=== PATIENT | female | born 1950 | race Caucasian/White ===

== ENCOUNTER 2021-10-29 18:50 | Observation (INO) ==
[2021-10-29] MEDS ORDERED: DILTIAZEM 50 MG/10 ML VIAL IV STA (19:17)
[2021-10-29 19:24] LABS: Basophils # 0.1 10*3/uL (0.0-0.2); Basophils % 0.8 % (0.0-0.8); Eosinophils # 0.3 10*3/uL (0.0-0.87); Eosinophils % 3.4 % (0.00-10.9); Hematocrit 39.4 VOL% (35.7-47.0); Immature Granulocytes % 0.5 %; Immature Granulocytes Absolute 0.04 #; Lymphocytes # 1.7 10*3/uL (1.4-4.0); Lymphocytes % 21.7 % (21.3-54.2); Mean Corpuscular Volume 93.4 FL (87-102); Mean Platelet Volume 11.4 FL (9.6-12.0); Monocytes % 4.9 % (1.7-12.7); Neutrophils % 68.7 % (38.7-73.9); Platelet Count 230 T/CUMM (130-400); Red Blood Count 4.22 MC/CUMM (3.8-5.5); Red Cell Distribution Width 13.2 % (9.3-17.3); White Blood Count 7.8 T/CUMM (4-12)
[2021-10-29 19:38] LABS: PT Patient Result 11.5 SECS (10.5-12.0); Partial Thromboplastin Time 26.6 SECS (23.8-32.1)
[2021-10-29] MEDS: DILTIAZEM INJ 100 MG in SODIUM CHLORIDE 0.9% 100 ML IV SCH (19:38)
[2021-10-29 19:58] LABS: Alanine Aminotransferase 24 U/L (13-56); Albumin 3.7 G/DL (3.4-5.0); Alkaline Phosphatase 88 U/L (45-117); Aspartate Amino Transferase 24 U/L (0-37); Bilirubin,Total < 0.39 MG/DL (0.20-1.00); Blood Urea Nitrogen 14 MG/DL (7-18); Calcium 9.2 MG/DL (8.5-10.1); Carbon Dioxide 28 MMOL/L (21-32); Estimated Glom Filtration Rate 93 ML/MIN; Glucose 223 MG/DL (74-106); Osmolality,Calculated 271.5 MOS/KG (273-304); Potassium 4.2 MMOL/L (3.5-5.1); Sodium 132 MMOL/L (136-145); Total Protein 7.5 G/DL (6.4-8.2)
[2021-10-29] MEDS ORDERED: ONDANSETRON 4 MG/2 ML VIAL IV PRN (20:17)
[2021-10-29] MEDS ORDERED: ACETAMINOPHEN 325 MG TABLET PO PRN (20:17)
[2021-10-29] MEDS ORDERED: SODIUM CHLORIDE 0.9% 1,000 ML IV SCH (20:30)
[2021-10-29] MEDS ORDERED: SIMVASTATIN 20 MG TABLET PO SCH (21:00)
[2021-10-29] MEDS: ASPIRIN CHEW 81 MG TABLET PO SCH (21:12)
[2021-10-29 23:34] LABS: Mucus,Urine Occasional /LPF (Occasional); RBC,Urine 3 /HPF (0-4); Squamous Epithelial Cell,Urine Occasional /HPF (0-10)
[2021-10-29 23:35] LABS: Bilirubin,Urine Negative (Negative); Blood, Urine Trace mg/dL (Negative); Glucose,Urine (UA) Negative (Negative); Ketones,Urine 15 mg/dL (Negative); Nitrite,Urine Negative (Negative); Protein,Urine 30 MG/DL; Urine Appearance Clear (Clear); Urine Color Yellow (Yellow); Urine Urobilinogen 0.2 EU/DL (<2.0); Urine pH 7.5 (4.5-8.0)
[2021-10-30] MEDS ORDERED: NITROGLYCERIN SL 0.4 MG TABLET SL PRN (00:23)
[2021-10-30] MEDS: ACETAMINOPHEN 500 MG TABLET PO PRN ×2 (00:46→13:14)
[2021-10-30 03:33] LABS: Basophils % 0.4 % (0.0-0.8); Eosinophils # 0.2 10*3/uL (0.0-0.87); Eosinophils % 2.7 % (0.00-10.9); Hematocrit 34.5 VOL% (35.7-47.0); Hemoglobin 11.7 GM/DL (12.0-16.0); Immature Granulocytes % 0.1 %; Immature Granulocytes Absolute 0.01 #; Lymphocytes # 2.6 10*3/uL (1.4-4.0); Lymphocytes % 33.9 % (21.3-54.2); Mean Corpuscular HGB Conc 33.9 GM/DL (32-36); Mean Corpuscular Volume 91.8 FL (87-102); Mean Platelet Volume 11.1 FL (9.6-12.0); Monocytes % 8.5 % (1.7-12.7); Neutrophils % 54.4 % (38.7-73.9); Platelet Count 191 T/CUMM (130-400); Red Blood Count 3.76 MC/CUMM (3.8-5.5); Red Cell Distribution Width 13.3 % (9.3-17.3); White Blood Count 7.7 T/CUMM (4-12)
[2021-10-30] MEDS: cefTRIAXone 1,000 MG in SODIUM CHLORIDE 0.9% 100 ML IV SCH (03:53)
[2021-10-30 03:54] LABS: Alanine Aminotransferase 22 U/L (13-56); Albumin 3.4 G/DL (3.4-5.0); Alkaline Phosphatase 71 U/L (45-117); Aspartate Amino Transferase 24 U/L (0-37); Bilirubin,Total < 0.39 MG/DL (0.20-1.00); Blood Urea Nitrogen 17 MG/DL (7-18); Calcium 9.3 MG/DL (8.5-10.1); Carbon Dioxide 27 MMOL/L (21-32); Estimated Glom Filtration Rate 96 ML/MIN; Glucose 93 MG/DL (74-106); Osmolality,Calculated 271.1 MOS/KG (273-304); Sodium 135 MMOL/L (136-145); Total Protein 6.7 G/DL (6.4-8.2)
[2021-10-30] MEDS ORDERED: ISOSORBIDE MONONITRATE 30 MG TABLET PO SCH (09:00)
[2021-10-30] MEDS ORDERED: PANTOPRAZOLE 40 MG TABLET PO SCH (09:00)
[2021-10-30] MEDS ORDERED: PARoxetine 20 MG TABLET PO SCH (09:00)
[2021-10-30] MEDS ORDERED: LOSARTAN 25 MG TABLET PO SCH (09:00)
[2021-10-30] MEDS: VENLAFAXINE 75 MG TABLET PO SCH ×2 (09:45→20:47)
[2021-10-30] MEDS: LOSARTAN 25 MG TABLET PO SCH (09:46)
[2021-10-30] MEDS: ISOSORBIDE MONONITRATE 60 MG TABLET PO SCH (09:46)
[2021-10-30] MEDS: carvediloL 3.125 MG TABLET PO SCH ×2 (09:47→16:51)
[2021-10-30] MEDS: PARoxetine 20 MG TABLET PO SCH (09:47)
[2021-10-30] MEDS: FUROSEMIDE 20 MG/2 ML VIAL IV SCH (09:47)
[2021-10-30] MEDS ORDERED: SIMVASTATIN 20 MG TABLET PO SCH (19:00)
[2021-10-30] MEDS ORDERED: GABAPENTIN 300 MG CAPSULE PO SCH (19:00)
[2021-10-30] MEDS: SIMVASTATIN 20 MG TABLET PO SCH (20:47)
[2021-10-30] MEDS: GABAPENTIN 300 MG CAPSULE PO SCH (20:47)
[2021-10-30] MEDS: ASPIRIN CHEW 81 MG TABLET PO SCH (20:47)
[2021-10-31] MEDS: cefTRIAXone 1,000 MG in SODIUM CHLORIDE 0.9% 100 ML IV SCH (02:27)
[2021-10-31 05:15] LABS: Basophils # 0.1 10*3/uL (0.0-0.2); Basophils % 0.9 % (0.0-0.8); Eosinophils # 0.3 10*3/uL (0.0-0.87); Eosinophils % 4.9 % (0.00-10.9); Hematocrit 37.3 VOL% (35.7-47.0); Hemoglobin 12.4 GM/DL (12.0-16.0); Immature Granulocytes % 0.2 %; Immature Granulocytes Absolute 0.01 #; Lymphocytes # 2.3 10*3/uL (1.4-4.0); Lymphocytes % 35.2 % (21.3-54.2); Mean Corpuscular HGB Conc 33.2 GM/DL (32-36); Mean Corpuscular Volume 92.6 FL (87-102); Mean Platelet Volume 11.3 FL (9.6-12.0); Monocytes % 8.7 % (1.7-12.7); Neutrophils % 50.1 % (38.7-73.9); Platelet Count 202 T/CUMM (130-400); Red Blood Count 4.03 MC/CUMM (3.8-5.5); Red Cell Distribution Width 13.2 % (9.3-17.3); White Blood Count 6.6 T/CUMM (4-12)
[2021-10-31 05:36] LABS: Albumin 3.3 G/DL (3.4-5.0); Bilirubin,Total 1.3 MG/DL (0.20-1.00); Calcium 9.1 MG/DL (8.5-10.1); Osmolality,Calculated 277.5 MOS/KG (273-304); Potassium 4.4 MMOL/L (3.5-5.1); Total Protein 7.1 G/DL (6.4-8.2)
[2021-10-31] MEDS: VENLAFAXINE 75 MG TABLET PO SCH ×2 (09:25→20:21)
[2021-10-31] MEDS: LOSARTAN 25 MG TABLET PO SCH (09:25)
[2021-10-31] MEDS: PARoxetine 20 MG TABLET PO SCH (09:25)
[2021-10-31] MEDS: carvediloL 3.125 MG TABLET PO SCH ×2 (09:25→16:45)
[2021-10-31] MEDS: ISOSORBIDE MONONITRATE 60 MG TABLET PO SCH (09:25)
[2021-10-31] MEDS: FUROSEMIDE 20 MG/2 ML VIAL IV SCH (09:26)
[2021-10-31] MEDS ORDERED: CLORAZEPATE 3.75 MG TABLET PO PRN (14:46)
[2021-10-31] MEDS: ACETAMINOPHEN 500 MG TABLET PO PRN (15:17)
[2021-10-31] MEDS: DILTIAZEM INJ 100 MG in SODIUM CHLORIDE 0.9% 100 ML IV SCH (16:20)
[2021-10-31] MEDS: GABAPENTIN 300 MG CAPSULE PO SCH (20:21)
[2021-10-31] MEDS: ASPIRIN CHEW 81 MG TABLET PO SCH (20:21)
[2021-10-31] MEDS: SIMVASTATIN 20 MG TABLET PO SCH (20:21)
[2021-10-31] MEDS: ACETAMINOPHEN 500 MG TABLET PO SCH (21:50)
[2021-11-01] MEDS: cefTRIAXone 1,000 MG in SODIUM CHLORIDE 0.9% 100 ML IV SCH (01:00)
[2021-11-01 04:54] LABS: Basophils # 0.1 10*3/uL (0.0-0.2); Basophils % 0.8 % (0.0-0.8); Eosinophils # 0.4 10*3/uL (0.0-0.87); Eosinophils % 7.1 % (0.00-10.9); Hematocrit 37.4 VOL% (35.7-47.0); Hemoglobin 12.5 GM/DL (12.0-16.0); Immature Granulocytes % 0.3 %; Immature Granulocytes Absolute 0.02 #; Lymphocytes # 2.2 10*3/uL (1.4-4.0); Lymphocytes % 36.3 % (21.3-54.2); Mean Corpuscular HGB Conc 33.4 GM/DL (32-36); Mean Corpuscular Volume 92.3 FL (87-102); Mean Platelet Volume 11.1 FL (9.6-12.0); Monocytes % 8.9 % (1.7-12.7); Neutrophils % 46.6 % (38.7-73.9); Platelet Count 189 T/CUMM (130-400); Red Blood Count 4.05 MC/CUMM (3.8-5.5)
[2021-11-01 05:19] LABS: Albumin 3.4 G/DL (3.4-5.0); Bilirubin,Total 0.6 MG/DL (0.20-1.00); Calcium 9.1 MG/DL (8.5-10.1); Potassium 3.5 MMOL/L (3.5-5.1); Total Protein 7.2 G/DL (6.4-8.2)
[2021-11-01] MEDS: ACETAMINOPHEN 500 MG TABLET PO SCH ×3 (05:55→21:29)
[2021-11-01] MEDS: carvediloL 3.125 MG TABLET PO SCH ×2 (09:29→16:42)
[2021-11-01] MEDS: ISOSORBIDE MONONITRATE 60 MG TABLET PO SCH (09:29)
[2021-11-01] MEDS: LOSARTAN 25 MG TABLET PO SCH (09:29)
[2021-11-01] MEDS: PARoxetine 20 MG TABLET PO SCH (09:29)
[2021-11-01] MEDS: VENLAFAXINE 75 MG TABLET PO SCH ×2 (09:29→20:35)
[2021-11-01] MEDS ORDERED: MAGNESIUM SULF RIDER 2 GM/50 ML PREMIX IV PRN (12:05)
[2021-11-01] MEDS ORDERED: POTASSIUM CHLORIDE RIDER 10 MEQ/100 ML PREMIX IV PRN (12:05)
[2021-11-01] MEDS ORDERED: diphenhydrAMINE CAP 50 MG CAPSULE PO ONE (12:05)
[2021-11-01] MEDS ORDERED: DIAZEPAM 5 MG TABLET PO ONE (12:05)
[2021-11-01] MEDS ORDERED: MIDAZOLAM 2 MG/2 ML VIAL ONE (12:08)
[2021-11-01] MEDS ORDERED: fentaNYL 100 MCG/2 ML VIAL ONE (12:08)
[2021-11-01] MEDS ORDERED: LIDOCAINE 1% 20 ML VIAL ONE (12:10)
[2021-11-01] MEDS ORDERED: SODIUM CHLORIDE 0.9% 1,000 ML IV SCH (12:30)
[2021-11-01] MEDS ORDERED: HEPARIN 5,000 UNIT/1 ML VIAL ONE (13:45)
[2021-11-01] MEDS ORDERED: hydrALAZINE 20 MG/1 ML VIAL ONE (13:52)
[2021-11-01] MEDS: DILTIAZEM INJ 100 MG in SODIUM CHLORIDE 0.9% 100 ML IV SCH ×2 (16:16→22:58)
[2021-11-01] MEDS: FUROSEMIDE 20 MG/2 ML VIAL IV SCH (19:08)
[2021-11-01] MEDS: ASPIRIN CHEW 81 MG TABLET PO SCH (20:35)
[2021-11-01] MEDS: GABAPENTIN 300 MG CAPSULE PO SCH (20:35)
[2021-11-01] MEDS: SIMVASTATIN 20 MG TABLET PO SCH (20:35)
[2021-11-01] MEDS ORDERED: SODIUM CHLORIDE 0.65% NASAL SPRAY 45 ML BOTTLE BOTH NARES PRN (21:38)
[2021-11-02] MEDS: cefTRIAXone 1,000 MG in SODIUM CHLORIDE 0.9% 100 ML IV SCH (02:04)
[2021-11-02 05:01] LABS: Basophils % 0.6 % (0.0-0.8); Eosinophils # 0.3 10*3/uL (0.0-0.87); Eosinophils % 4.6 % (0.00-10.9); Hematocrit 39.5 VOL% (35.7-47.0); Hemoglobin 13.3 GM/DL (12.0-16.0); Immature Granulocytes % 0.3 %; Immature Granulocytes Absolute 0.02 #; Lymphocytes # 1.8 10*3/uL (1.4-4.0); Lymphocytes % 25.2 % (21.3-54.2); Mean Corpuscular HGB Conc 33.7 GM/DL (32-36); Mean Corpuscular Volume 91.9 FL (87-102); Mean Platelet Volume 11.3 FL (9.6-12.0); Neutrophils % 60.3 % (38.7-73.9); Platelet Count 210 T/CUMM (130-400); Red Cell Distribution Width 13.3 % (9.3-17.3)
[2021-11-02 05:49] LABS: Calcium 9.5 MG/DL (8.5-10.1); Osmolality,Calculated 264.4 MOS/KG (273-304); Potassium 3.5 MMOL/L (3.5-5.1)
[2021-11-02] MEDS: ACETAMINOPHEN 500 MG TABLET PO SCH ×2 (06:12→14:51)
[2021-11-02] MEDS ORDERED: CLOPIDOGREL 75 MG TABLET PO SCH (09:00)
[2021-11-02] MEDS: ISOSORBIDE MONONITRATE 60 MG TABLET PO SCH (09:16)
[2021-11-02] MEDS: PARoxetine 20 MG TABLET PO SCH (09:16)
[2021-11-02] MEDS: VENLAFAXINE 75 MG TABLET PO SCH (09:16)
[2021-11-02] MEDS: carvediloL 3.125 MG TABLET PO SCH (09:17)
[2021-11-02] MEDS: LOSARTAN 25 MG TABLET PO SCH (09:17)
[2021-11-02] MEDS: FUROSEMIDE 20 MG/2 ML VIAL IV SCH (09:19)
[2021-11-02 14:25] VITALS: BP 127/74
== END 2021-11-02 15:48 | disposition home or self-care (01) ==
LOC: EDBD → EDUNIT# → N.EDINP 18:50 → N.ED 18:50 → N.TELES 21:17
PROVIDERS: ADMIT Family Medicine; ATTEND Family Medicine